=== PATIENT | female | born 1990 | race American Indian/Alaskan Native ===

== ENCOUNTER 2017-01-24 21:00 | Emergency (ER) | payer MEDICAID, OTHER ==
[2017-01-24 21:07] VITALS: BP 154/94; PULSE 83; RESP 20; TEMP 99.5
--- NOTE | 2017-01-24 21:21 | ED PDOC ---
Arrival/HPI - General Historian: Patient - History of Present Illness Time/Duration: < week (2 days ago) Symptom Onset: Sudden Symptom Course: Unchanged - General Chief Complaint: Shortness Of Breath Time Seen by Provider: 01/24/17 21:06 - History of Present Illness Narrative History of Present Illness (Text): 01/24/17 21:10 Abbi Owens is a 26 year old female, who presents to the Emergency department complaining of lightheadedness, headache, sob Patient reports she also has experienced weakness and shortness of breath for the last two days. Patient denies chest pain, headache, fever, chills, cough, nausea, vomiting, diarrhea, abdominal pain, or other complaints. 01/24/17 23:05 (Mat Harris) Modifying Factors (Text): None (Mat Harris) Associated Symptoms (Text): weakness and shortness of breath (Mat Harris) Past Medical History - Provider Review Nursing Documentation Reviewed: Yes - Psychiatric Hx Substance Use: No Family/Social History - Physician Review Nursing Documentation Reviewed: Yes Family/Social History: Unknown Family HX Smoking Status: Light Smoker < 10 Cigarettes Daily Hx Alcohol Use: No Hx Substance Use: No Allergies/Home Meds Allergies/Adverse Reactions: Allergies No Known Allergies Allergy (Verified 01/25/17 17:57) Review of Systems - Physician Review All systems were reviewed & negative as marked: Yes - Review of Systems Constitutional: Fatigue. absent: Fevers Respiratory: SOB Cardiovascular: absent: Chest Pain Gastrointestinal: absent: Abdominal Pain Neurological: Other (lightheadedness). absent: Headache Physical Exam Temperature: Afebrile Blood Pressure: Hypertensive Pulse: Regular Respiratory Rate: Normal Appearance: Positive for: Well-Appearing, Non-Toxic, Comfortable Pain Distress: None Mental Status: Positive for: Alert and Oriented X 3 - Systems Exam Head: Present: Atraumatic, Normocephalic Pupils: Present: PERRL Extroacular Muscles: Present: EOMI Conjunctiva: Present: Normal Mouth: Present: Moist Mucous Membranes Neck: Present: Normal Range of Motion Respiratory/Chest: Present: Clear to Auscultation, Good Air Exchange. No: Respiratory Distress, Accessory Muscle Use Cardiovascular: Present: Regular Rate and Rhythm, Normal S1, S2. No: Murmurs Abdomen: Present: Normal Bowel Sounds. No: Tenderness, Distention, Peritoneal Signs Back: Present: Normal Inspection Upper Extremity: Present: Normal Inspection. No: Cyanosis, Edema Lower Extremity: Present: Normal Inspection. No: Edema Neurological: Present: GCS=15, CN II-XII Intact, Speech Normal Skin: Present: Warm, Dry, Normal Color. No: Rashes Psychiatric: Present: Alert, Oriented x 3, Normal Insight, Normal Concentration , Anxious (slgihtly anxious appearing) Medical Decision Making - Lab Interpretations I have reviewed the lab results: Yes ED Course and Treatment: 01/24/17 Impression: 26 year old female with lightheadedness, weakness, and shortness of breath. Plan: -- EKG -- Chest X-ray -- Labs -- Urinalysis -- Tylenol -- Reassess and disposition Progress Notes: EKG: Ordered, reviewed, and independently interpreted the EKG. Rate : 58 BPM Rhythm : NSR Interpretation : No ST/T wave changes. Patient is PERC negative. 01/24/17 23:05 pt reassesed awake alert, neuro intact. headache resolved. pt states feels well for d/c. 01/24/17 23:07 MPRESSION: 1. No acute intracranial abnormality (RaswantMat) - Lab Interpretations Microbiology Results: Microbiology Results 01/24/17 21:30 Urine,Clean Catch Urine Culture - Preliminary Gram Negative Atif Lab Results: 01/24/17 21:20 01/24/17 21:20 Lab Results 01/24/17 21:30: Urine Color Yellow, Urine Appearance Clear, Urine pH 7.0, Ur Specific [place] 1.010, Urine Protein Negative, Urine Glucose (UA) Negative, Urine Ketones Negative, Urine Blood Trace-intact H, Urine Nitrate Negative, Urine Bilirubin Negative, Urine Urobilinogen 0.2, Ur Leukocyte Esterase Small H , Urine RBC 1 - 3, Urine WBC 2 - 5, Ur Epithelial Cells 3 - 4, Urine Bacteria Few, Urine HCG, Qual Negative 01/24/17 21:20: Sodium 139, Potassium 3.8, Chloride 104, Carbon Dioxide 24, Anion Gap 15, BUN 5 L, Creatinine 0.7, Est GFR ( Amer) > 60, Est GFR (Non -Af Amer) > 60, Random Glucose 94, Calcium 9.8, Total Bilirubin 0.6, AST 40 H, ALT 41, Alkaline Phosphatase 88, Total Protein 8.5 H, Albumin 4.5, Globulin 4.0 , Albumin/Globulin Ratio 1.1 01/24/17 21:20: PT 11.4, INR 1.06, APTT 32.2 H 01/24/17 21:20: WBC 6.1, RBC 4.36, Hgb 13.2, Hct 38.0, MCV 87.2, MCH 30.3, MCHC 34.7, RDW 13.3, Plt Count 212, MPV 11.1 H, Gran % 38.0 L, Lymph % (Auto) 49.3 H , Irion % (Auto) 11.1 H, Eos % (Auto) 1.3 L, Baso % (Auto) 0.3, Gran # 2.31, Lymph # 3.0, Irion # 0.7 H, Eos # 0.1, Baso # 0.02 - RAD Interpretation Radiology Orders: 01/24/17 21:14 CHEST PORTABLE [RAD] Stat 01/24/17 22:30 HEAD W/O CONTRAST [CT] Stat - Medication Orders Current Medication Orders: Discontinued Medications Acetaminophen (Tylenol 325mg Tab) 975 mg PO STAT STA Stop: 01/24/17 21:16 Last Admin: 01/24/17 21:37 Dose: 975 mg - Scribe Statement The provider has reviewed the documentation as recorded by the Scribe - Scribe Statement 01/24/2017 Cheli Tucker Provider Scribe Attestation: All medical record entries made by the Scribe were at my direction and personally dictated by me. I have reviewed the chart and agree that the record accurately reflects my personal performance of the history, physical exam, medical decision making, and the department course for this patient. I have also personally directed, reviewed, and agree with the discharge instructions and disposition. (Mat Harris) Disposition/Present on Arrival - Present on Arrival Any Indicators Present on Arrival: No History of DVT/PE: No History of Uncontrolled Diabetes: No Urinary Catheter: No History of Decub. Ulcer: No History Surgical Site Infection Following: None - Disposition Have Diagnosis and Disposition been Completed?: Yes Disposition Time: 23:06 - Disposition Diagnosis: Headache Disposition: HOME/ ROUTINE Condition: STABLE Discharge Instructions (ExitCare): Acute Headache (ED), Dyspnea (ED) Additional Instructions: please follow upw ith your doctor. return toe r with worsening symptoms or concerns. Prescriptions: Nitrofurantoin Macrocrystals [Macrobid] 100 mg PO BID #14 cap Referrals: [facility] [Outside] - Follow up with primary [facility]] - Follow up with primary [facility] [Outside] - Follow up with primary Bird Mcguire MD [Staff Provider] - Follow up with primary Forms: [employer] (Welsh) - Notes Notes (Text): 01/26/17 16:27 Urine cx shows +gram neg rods colony count 50k-100k. Pt called Rx for macrobid sent to her preferred pharmacy. (Baldemar NOVAK,Daria Guerin)
[2017-01-24 21:28] VITALS: O2SAT 98
[2017-01-24 21:38] LABS: BASO # 0.02 K/mm3 (0.0-2.0); BASO % 0.3 % (0.0-3.0); EOS # 0.1 (0.0-0.7); EOS % 1.3 % (1.5-5.0); GRAN # 2.31 (1.4-6.5); HEMOGLOBIN 13.2 gm/dL (12.0-16.0); LYMPH % 49.3 % (22.0-35.0); MEAN CELL VOLUME 87.2 fL (80.0-105.0); MEAN CORPUSCULAR HEMOGLOBIN 30.3 pg (25.0-35.0); MEAN CORPUSCULAR HGB CONC 34.7 g/dl (31.0-37.0); MEAN PLATELET VOLUME 11.1 fl (7.0-11.0); MONO # 0.7 (0.1-0.6); MONO % 11.1 % (1.0-6.0); PLATELET COUNT 212 10^3/uL (120.0-450.0); RBC 4.36 10^6/uL (3.5-6.1); RED CELL DISTRIBUTION WIDTH 13.3 % (11.5-14.5); WHITE BLOOD COUNT 6.1 10^3/ul (4.5-11.0)
[2017-01-24 21:49] LABS: ALB/GLOB RATIO 1.1 (1.1-1.8); ALBUMIN 4.5 g/dL (3.0-4.8); ALT/SGPT 41 U/L (7-56); AST/SGOT 40 U/L (15-39); BLOOD UREA NITROGEN 5 mg/dL (7-21); CALCIUM 9.8 mg/dL (8.4-10.5); GFR AFRICAN-AMERICAN > 60; GFR NON-AFRICAN AMERICAN > 60
[2017-01-24 21:50] LABS: INR 1.06 (0.93-1.08); PARTIAL THROMBOPLASTIN TIME 32.2 Seconds (23.7-30.8); PROTHROMBIN TIME 11.4 Seconds (9.9-11.8)
[2017-01-24 21:59] LABS: URINE BILIRUBIN NEGATIVE (NEGATIVE); URINE BLOOD TRACE-INTACT (NEGATIVE); URINE GLUCOSE (UA) NEGATIVE (NEGATIVE); URINE LEUKOCYTE ESTERASE SMALL Leu/uL (NEGATIVE); URINE NITRATE NEGATIVE (NEGATIVE); URINE PROTEIN NEGATIVE mg/dL (<30 mg/dL); URINE UROBILINOGEN 0.2 E.U./dL (<1 E.U./dL)
[2017-01-24 22:04] LABS: HCG,QUALITATIVE URINE NEGATIVE (NEGATIVE)
[2017-01-24 22:05] LABS: URINE APPEARANCE CLEAR (CLEAR); URINE COLOR YELLOW (YELLOW)
[2017-01-24 22:23] LABS: URINE BACTERIA FEW (NEG)
--- NOTE | 2017-01-24 23:05 | CT ---
EXAM: CT Head Without Intravenous Contrast CLINICAL HISTORY: 26 years old, female; Pain; Headache; Tension; Additional info: GERONIMO TECHNIQUE: Axial computed tomography images of the head/brain without intravenous contrast. This CT exam was performed using one or more of the following dose reduction techniques: automated exposure control, adjustment of the mA and/or kV according to patient size, and/or use of iterative reconstruction technique. COMPARISON: No relevant prior studies available. FINDINGS: Brain: No intracranial hemorrhage. No mass. No definite edema. Ventricles: No hydrocephalus. Bones/joints: No acute fracture. Soft tissues: Unremarkable. Sinuses: No acute sinusitis. Mastoid air cells: No mastoid effusion. Orbits: Unremarkable as visualized. IMPRESSION: 1. No acute intracranial abnormality.
--- NOTE | 2017-01-25 11:02 | CARD ---
APPROVED REPORT EKG Measurement Heart [id number] <Conclusion> Sinus bradycardia Otherwise normal ECG
--- NOTE | 2017-01-25 12:02 | RAD ---
HISTORY: sob COMPARISON: No prior. FINDINGS: LUNGS: No active pulmonary disease. PLEURA: No significant pleural effusion identified, no pneumothorax apparent. CARDIOVASCULAR: Normal. OSSEOUS STRUCTURES: No significant abnormalities. VISUALIZED UPPER ABDOMEN: Normal. OTHER FINDINGS: None. IMPRESSION: No active disease.
== END 2017-01-24 23:56 | disposition home or self-care (01) ==
LOC: ED 21:00
DX: R51 Headache (principal); F17.210 Nicotine dependence, cigarettes, uncomplicated

== ENCOUNTER 2017-01-25 11:09 | Emergency (ER) | payer MEDICAID, OTHER ==
[2017-01-25] MEDS ORDERED: Sodium Chloride 0.9% 1,000 ML IV STA (11:28)
--- NOTE | 2017-01-25 11:33 | ED PDOC ---
Arrival/HPI - General Chief Complaint: Dizziness/Lightheaded Time Seen by Provider: 01/25/17 11:28 Historian: Patient - History of Present Illness Narrative History of Present Illness (Text): 01/25/17 11:20 A 26 year old female with no known past medical history, presents to the emergency department with weakness and lightheadedness since last night. The patients came to the emergency department last night, and her symptoms have not resolved. The patient denies symptoms of fevers chills, nausea, vomiting, diarrhea, abdominal pain, chest pain, shortness of breath. Time/Duration: Prior to Arrival, Other (Yesterday) Symptom Course: Unchanged Activities at Onset: Rest, Light Context: Home Past Medical History - Provider Review Nursing Documentation Reviewed: Yes - Infectious Disease Hx of Infectious Diseases: None - Psychiatric Hx Substance Use: No - Anesthesia Hx Anesthesia: No Hx Anesthesia Reactions: No Hx Malignant Hyperthermia: No Family/Social History - Physician Review Nursing Documentation Reviewed: Yes Family/Social History: No Known Family HX Smoking Status: Light Smoker < 10 Cigarettes Daily Hx Alcohol Use: No Hx Substance Use: No Allergies/Home Meds Allergies/Adverse Reactions: Allergies No Known Allergies Allergy (Verified 01/28/16 18:57) Home Medications: Home Meds Medication Instructions Recorded Confirmed No Known Home Med 01/24/17 01/24/17 Physical Exam - Physical Exam Narrative Physical Exam (Text): 01/25/17 11:44 - Review of Systems Constitutional: Normal. absent: Fatigue, Weight Change, Fevers Eyes: Normal ENT: Normal Respiratory: Normal absent: SOB, Cough, Sputum Cardiovascular: Normal absent: Chest pain, Palpitations, Syncope Gastrointestinal: Normal absent: Abdominal pain, Diarrhea, Nausea, Vomiting Genitourinary: Normal. absent: Dysuria, Frequency, Hematuria Musculoskeletal: Normal. absent: Arthralgias, Back Pain, Neck Pain Skin: Normal Neurological: (+) Lightheadedness, Dizziness. absent: Focal Weakness Endocrine: Normal Hemo/Lymphatic: Normal Psychiatric: Normal - Physical exam Patient appears age appropriate, speaking full sentences without difficulty - Systems Exam Head: Present: Atraumatic, Normocephalic Pupils: Present: PERRL Extraocular Muscles: Present: EOMI Conjunctiva: Present: Normal Mouth: Present: Moist Mucous Membranes Neck: Present: Normal Range of Motion. No: MIDLINE TENDERNESS, Paraspinal Tenderness Respiratory/Chest: Present: Clear to Auscultation, Good Air Exchange. No: Respiratory Distress, Accessory Muscle Use, Tachypnic Cardiovascular: Present: Regular Rate and Rhythm, Normal S1, S2, Peripheral Pulses Present. No: Murmurs Abdomen: Present: Normal Bowel Sounds, No: Tenderness, Peritoneal Signs, Rebound, Guarding, Distention Back: Present: Normal Inspection. No: Midline Tenderness, Paraspinal Tenderness Upper Extremity: Present: Normal Inspection. No: Cyanosis, Edema Lower Extremity: Present: Normal Inspection. No: Edema Neurological: Present: GCS=15, Speech Normal, cranial nerves II through XII fully intact with no cerebellar abnormality, neuro-sensory fully intact. No focal neurological deficits. Skin: Present: Warm, Dry, Normal Color. No: Rashes Lymphatic: Present: OX3, NI, NC Psychiatric: Present: Alert, Oriented x 3, Normal Insight, Normal Concentration 01/25/17 11:53 Vital Signs Reviewed: Yes Vital Signs Temp Pulse Resp BP Pulse Ox 01/25/17 13:38 134/75 01/25/17 11:18 98.2 F 66 19 121/72 100 Temperature: Afebrile Blood Pressure: Normal Pulse: Regular Respiratory Rate: Normal - Systems Exam Ears: Present: Normal, NORMAL TM, Normal Canal, Other (b/l). No: Erythema, TM Bulging, Fluid, TM Perf Medical Decision Making ED Course and Treatment: 01/25/17 11:44 Impression: A 26 year old female with unresolved dizziness and light headedness after her visit to the emergency department last night. Physical exam unremarkable. No focal neurological deficits. Plan: -- Toradol -- IV Fluids -- Reassess and disposition Prior Visits: Notes and results from previous visits were reviewed. Patient was last seen in the emergency department on 01/24/17 Progress Notes: 01/25/17 11:20: Patient remains symptomatic, more Meclizine ordered. 01/25/17 11:32: Patient's previous records reviewed, Head CT from 01/24/17 showed no acute abnormalities. Patients blood work from 01/24/17 unremarkable. Patients Chest X-ray from 01/24/17 normal. Patient's EKG from 01/24/17 shows: Rate : 58 BPM Rhythm : Bradychardia Normal intervals. 01/25/17 14:55 on reeval, pt states she feels better ambulating with steady gain and tolerating PO without difficulty pt states she already has a meclizine rx instructed to f/u with ENT specialist pt state she feels comfortable being dc'd home Pt states she understands to return to the ER right away for new or worsening symptoms or for inability to f/u with PMD or specialist as instructed. Patient states that she fully agrees with and understands discharge instructions. States that she agrees with the plan and disposition. Verbalized and repeated discharge instructions and plan. I have given the patient opportunity to ask any additional questions. - Medication Orders Current Medication Orders: Discontinued Medications Sodium Chloride (Sodium Chloride 0.9%) 1,000 mls @ 1,000 mls/hr IV .Q1H STA Stop: 01/25/17 12:27 Last Admin: 01/25/17 11:52 Dose: 1,000 mls/hr Ketorolac Tromethamine (Toradol) 15 mg IVP STAT STA Stop: 01/25/17 11:39 Last Admin: 01/25/17 11:53 Dose: 15 mg Re-Assess: DAVIDA Pain Assessment Document 01/25/17 12:53 GMI (Rec: 01/25/17 13:17 G[id number]) Pain Reassessment Is this a pain reassessment? Yes Sleep Is patient sleeping during reassessment? No Presence of Pain Presence of Pain Yes Pain Scale Used Pain Scale Used Numeric Location Pain Location Body Supervisor Residential Description Description Sharp Intensity of Pain at present 4 Meclizine HCl (Antivert) 25 mg PO STAT STA Stop: 01/25/17 13:21 Last Admin: 01/25/17 14:32 Dose: 25 mg - Scribe Statement The provider has reviewed the documentation as recorded by the Marilynnibjeffry Fallon Provider Scribe Attestation: All medical record entries made by the Marilynnibjeffry were at my direction and personally dictated by me. I have reviewed the chart and agree that the record accurately reflects my personal performance of the history, physical exam, medical decision making, and the department course for this patient. I have also personally directed, reviewed, and agree with the discharge instructions and disposition. Disposition/Present on Arrival - Present on Arrival Any Indicators Present on Arrival: No History of DVT/PE: No History of Uncontrolled Diabetes: No Urinary Catheter: No History of Decub. Ulcer: No History Surgical Site Infection Following: None - Disposition Have Diagnosis and Disposition been Completed?: Yes Diagnosis: Dizzy Disposition: HOME/ ROUTINE Disposition Time: 14:57 Patient Plan: Discharge Condition: GOOD Discharge Instructions (ExitCare): Dizziness (ED), Lightheadedness (ED) Additional Instructions: PLEASE RETURN TO THE EMERGENCY DEPARTMENT FOR NEW OR WORSENING SYMPTOMS. RETURN RIGHT AWAY IF YOU CANNOT FOLLOW UP WITH YOUR PRIMARY CARE DOCTOR, CLINIC, OR SPECIALIST IN 1-2 DAYS. Referrals: Kirk Cisneros [Primary Care Provider] - Follow up with primary Chalino Menon DO [Staff Provider] - Follow up with primary Vik Julian DO [Doctor Osteopathy] - Follow up with primary Forms: [employer] (Spanish)
[2017-01-25 15:25] VITALS: BP 121/72; PULSE 96; RESP 20; TEMP 98.5; O2SAT 99
== END 2017-01-25 15:27 | disposition home or self-care (01) ==
LOC: ED 11:09
DX: R42 Dizziness and giddiness (principal)
CPT/HCPCS: 96361; 96374; 99285; J1885; J7040

== ENCOUNTER 2017-01-28 23:37 | Emergency (ER) | payer MEDICAID, OTHER ==
[2017-01-29 00:59] VITALS: O2SAT 99
[2017-01-29] MEDS ORDERED: Sodium Chloride 0.9% 1,000 ML IV STA (01:33)
--- NOTE | 2017-01-29 01:35 | ED PDOC ---
Arrival/HPI - General Chief Complaint: Medical Clearance Time Seen by Provider: 01/29/17 01:04 Historian: Patient - History of Present Illness Narrative History of Present Illness (Text): 01/29/17 01:20 Abbi Owens is a 26 year old female, who has no significant past medical history, presents to the Emergency department complaining of a headache. Patient reports she also has occasional dizziness, chest discomfort, and knee discomfort. Patient denies any trauma. Patient denies shortness of breath, fever , cough, chills, neck pain, back pain, rash, visual disturbance, or other complaints. Symptom Onset: Sudden Symptom Course: Unchanged Associated Symptoms (Text): dizziness, chest discomfort, and knee discomfort Past Medical History - Provider Review Nursing Documentation Reviewed: Yes - Infectious Disease Hx of Infectious Diseases: None - Psychiatric Hx Substance Use: No - Surgical History Hx Section: Yes - Anesthesia Hx Anesthesia: No Hx Anesthesia Reactions: No Hx Malignant Hyperthermia: No Family/Social History - Physician Review Nursing Documentation Reviewed: Yes Family/Social History: Unknown Family HX Smoking Status: Former Smoker Hx Alcohol Use: No Hx Substance Use: No Allergies/Home Meds Allergies/Adverse Reactions: Allergies No Known Allergies Allergy (Verified 01/29/17 00:51) Review of Systems - Physician Review All systems were reviewed & negative as marked: Yes - Review of Systems Constitutional: absent: Fevers Eyes: absent: Vision Changes Respiratory: absent: SOB Cardiovascular: Other (chest discomfort) Gastrointestinal: absent: Abdominal Pain Musculoskeletal: Other (knee discomfort ). absent: Neck Pain Skin: absent: Rash Neurological: Headache, Dizziness (occasional) Physical Exam Vital Signs Temp Pulse Resp BP Pulse Ox 01/29/17 00:58 98.3 F 75 18 136/67 99 Temperature: Afebrile Blood Pressure: Normal Pulse: Regular Respiratory Rate: Normal Appearance: Positive for: Well-Appearing, Non-Toxic, Comfortable Pain Distress: None Mental Status: Positive for: Alert and Oriented X 3 - Systems Exam Head: Present: Atraumatic, Normocephalic Pupils: Present: PERRL Extroacular Muscles: Present: EOMI Conjunctiva: Present: Normal Mouth: Present: Moist Mucous Membranes Neck: Present: Normal Range of Motion. No: Meningeal Signs Respiratory/Chest: Present: Clear to Auscultation, Good Air Exchange, Tender to Palpation. No: Respiratory Distress, Accessory Muscle Use Cardiovascular: Present: Regular Rate and Rhythm, Normal S1, S2. No: Murmurs Abdomen: Present: Normal Bowel Sounds. No: Tenderness, Distention, Peritoneal Signs Back: Present: Normal Inspection Upper Extremity: Present: Normal Inspection. No: Cyanosis, Edema Lower Extremity: Present: Normal Inspection. No: Edema, Swelling (no knee swelling or warmth) Neurological: Present: GCS=15, CN II-XII Intact, Speech Normal Skin: Present: Warm, Dry, Normal Color. No: Rashes Psychiatric: Present: Alert, Oriented x 3, Normal Insight, Normal Concentration Medical Decision Making ED Course and Treatment: 01/29/17 01:20 Impression: 26 year old female with headache and chest discomfort. Plan: -- EKG -- Chest X-ray -- CT Head without contrast -- Urinalysis -- Labs -- Tylenol and Sodium Chloride -- Reassess and disposition Progress Notes: EKG: Ordered, reviewed, and independently interpreted the EKG. Rate : 64 BPM Rhythm : NSR Interpretation : No ST-segment elevations or depressions, no T-wave inversions, normal intervals. Comparison : No previous EKG for comparison. 01/29/17 03:18 CT Head Without Intravenous Contrast COMPARISON: 01/24/2017 10:35:37 PM FINDINGS: Brain: Unremarkable. No hemorrhage. No significant white matter disease. No edema. Ventricles: Unremarkable. No ventriculomegaly. Bones/joints: Congenital incomplete posterior arch of C1. No acute fracture. Soft tissues: Unremarkable. Sinuses: Unremarkable as visualized. No acute sinusitis. Mastoid air cells: Unremarkable as visualized. No mastoid effusion. IMPRESSION: Negative noncontrast head CT without change from 01/24/2017. 01/29/17 04:08 Chest X-ray: No Acute Process - Lab Interpretations Lab Results: 01/29/17 02:15 01/29/17 03:01 Lab Results 01/29/17 03:01: Sodium 137, Potassium 3.5 L, Chloride 102, Carbon Dioxide 25, Anion Gap 14, BUN 7, Creatinine 0.8, Est GFR ( Amer) > 60, Est GFR (Non- Af Amer) > 60, Random Glucose 94, Calcium 8.9, Total Bilirubin 0.3, AST 33, ALT 34, Alkaline Phosphatase 84, Lactate Dehydrogenase 256 L, Total Creatine Kinase 69, Troponin I < 0.01, Total Protein 7.4, Albumin 4.1, Globulin 3.3, Albumin/ Globulin Ratio 1.2 01/29/17 02:15: Urine Color Yellow, Urine Appearance Sl cloudy, Urine pH 6.0, Ur Specific [place] 1.025, Urine Protein Trace H, Urine Glucose (UA) Negative, Urine Ketones Trace H, Urine Blood Small H, Urine Nitrate Negative, Urine Bilirubin Negative, Urine Urobilinogen 0.2, Ur Leukocyte Esterase Negative, Urine RBC 1 - 3, Urine WBC 1 - 3, Ur Epithelial Cells 1 - 3, Urine Bacteria Few , Urine HCG, Qual Negative 01/29/17 02:15: WBC 6.7, RBC 4.30, Hgb 13.3, Hct 37.4, MCV 87.0, MCH 30.9, MCHC 35.6, RDW 13.5, Plt Count 251, MPV 11.5 H I have reviewed the lab results: Yes - RAD Interpretation Radiology Orders: 01/29/17 01:32 HEAD W/O CONTRAST [CT] Stat 01/29/17 01:40 CHEST PORTABLE [RAD] Stat It Assistant: Radiologist - EKG Interpretation Interpreted by ED Physician: Yes Type: 12 lead EKG - Medication Orders Current Medication Orders: Discontinued Medications Acetaminophen (Tylenol 325mg Tab) 650 mg PO STAT STA Stop: 01/29/17 01:34 Last Admin: 01/29/17 02:21 Dose: 650 mg Sodium Chloride (Sodium Chloride 0.9%) 1,000 mls @ 999 mls/hr IV .Q1H1M STA Stop: 01/29/17 02:33 Last Admin: 01/29/17 02:21 Dose: 999 mls/hr - Scribe Statement The provider has reviewed the documentation as recorded by the Scribe 01/29/2017 Cheli Tucker Provider Scribe Attestation: All medical record entries made by the Scribe were at my direction and personally dictated by me. I have reviewed the chart and agree that the record accurately reflects my personal performance of the history, physical exam, medical decision making, and the department course for this patient. I have also personally directed, reviewed, and agree with the discharge instructions and disposition. Disposition/Present on Arrival - Present on Arrival Any Indicators Present on Arrival: No History of DVT/PE: No History of Uncontrolled Diabetes: No Urinary Catheter: No History of Decub. Ulcer: No History Surgical Site Infection Following: None - Disposition Have Diagnosis and Disposition been Completed?: Yes Diagnosis: Headache, Myalgia, Dizziness Disposition: HOME/ ROUTINE Disposition Time: 05:17 Patient Plan: Discharge Condition: STABLE Discharge Instructions (ExitCare): General Headache (ED), Musculoskeletal Pain (ED) Additional Instructions: Rest/no strenuous physical activity next few days/medication as prescribed/ follow up with your doctor this week Prescriptions: Naproxen [Naprosyn Tab] 375 mg PO BID PRN #14 tab PRN Reason: Pain, Moderate (4-7) Referrals: Mariusz Cisneros MD [Primary Care Provider] - Follow up with primary Forms: [employer] (Nepalese)
[2017-01-29 02:37] LABS: HEMOGLOBIN 13.3 g/dL (12.0-16.0); MEAN CORPUSCULAR HEMOGLOBIN 30.9 pg (25.0-35.0); MEAN CORPUSCULAR HGB CONC 35.6 g/dl (31.0-37.0); MEAN PLATELET VOLUME 11.5 fl (7.0-11.0); RBC 4.3 10^6/uL (3.5-6.1); RED CELL DISTRIBUTION WIDTH 13.5 % (11.5-14.5); WHITE BLOOD COUNT 6.7 10^3/ul (4.5-11.0)
[2017-01-29 02:38] LABS: URINE BILIRUBIN NEGATIVE (NEGATIVE); URINE BLOOD SMALL (NEGATIVE); URINE GLUCOSE (UA) NEGATIVE (NEGATIVE); URINE LEUKOCYTE ESTERASE NEGATIVE Leu/uL (NEGATIVE); URINE NITRATE NEGATIVE (NEGATIVE); URINE PROTEIN TRACE mg/dL (<30 mg/dL); URINE UROBILINOGEN 0.2 E.U./dL (<1 E.U./dL)
[2017-01-29 02:45] LABS: HCG,QUALITATIVE URINE NEGATIVE (NEGATIVE)
[2017-01-29 02:46] LABS: URINE APPEARANCE SL CLOUDY (CLEAR); URINE COLOR YELLOW (YELLOW)
[2017-01-29 02:55] LABS: URINE BACTERIA FEW (NEG)
[2017-01-29 03:30] LABS: ALB/GLOB RATIO 1.2 (1.1-1.8); ALBUMIN 4.1 g/dL (3.0-4.8); ALT/SGPT 34 U/L (7-56); AST/SGOT 33 U/L (15-39); BLOOD UREA NITROGEN 7 mg/dL (7-21); CALCIUM 8.9 mg/dL (8.4-10.5); GFR AFRICAN-AMERICAN > 60; GFR NON-AFRICAN AMERICAN > 60
[2017-01-29 03:56] LABS: TROPONIN I < 0.01 ng/mL
[2017-01-29 05:31] VITALS: BP 128/72; PULSE 76; RESP 16; TEMP 97.9
[2017-01-29 05:46] LABS: BARBITURATES, UR NEGATIVE (NEGATIVE); BENZODIAZEPINES, UR NEGATIVE (NEGATIVE); OPIATES, UR NEGATIVE (NEGATIVE); PHENCYCLIDINE, UR NEGATIVE (NEGATIVE)
--- NOTE | 2017-01-29 07:07 | RAD ---
HISTORY: pain COMPARISON: 01/24/2017 FINDINGS: LUNGS: No active pulmonary disease. PLEURA: No significant pleural effusion identified, no pneumothorax apparent. CARDIOVASCULAR: Normal. OSSEOUS STRUCTURES: No significant abnormalities. VISUALIZED UPPER ABDOMEN: Normal. OTHER FINDINGS: None. IMPRESSION: No active disease.
--- NOTE | 2017-01-29 09:17 | CT ---
PROCEDURE: CT HEAD WITHOUT CONTRAST. HISTORY: headache COMPARISON: None available. TECHNIQUE: Axial computed tomography images were obtained through the head/brain without intravenous contrast. Radiation dose: Total exam DLP = 677 mGy-cm. This CT exam was performed using one or more of the following dose reduction techniques: Automated exposure control, adjustment of the mA and/or kV according to patient size, and/or use of iterative reconstruction technique. FINDINGS: HEMORRHAGE: No intracranial hemorrhage. BRAIN: No mass effect or edema. No atrophy or chronic microvascular ischemic changes. VENTRICLES: Unremarkable. No hydrocephalus. CALVARIUM: Unremarkable. PARANASAL SINUSES: Unremarkable as visualized. No significant inflammatory changes. MASTOID AIR CELLS: Unremarkable as visualized. No inflammatory changes. OTHER FINDINGS: None. IMPRESSION: Negative study
--- NOTE | 2017-01-30 01:04 | CARD ---
APPROVED REPORT EKG Measurement Heart [id number] <Conclusion> Normal sinus rhythm Normal ECG
== END 2017-01-29 05:49 | disposition home or self-care (01) ==
LOC: ED 23:37
DX: R51 Headache (principal); M79.1 Myalgia; R42 Dizziness and giddiness
CPT/HCPCS: 70450; 71010; 80053; 81001; 82550; 83615; 84484; 84703; 85027; 93005; 96360; 99284; G0480; J7040

== ENCOUNTER 2017-01-29 12:55 | Emergency (ER) | payer MEDICAID, OTHER ==
--- NOTE | 2017-01-29 13:18 | ED PDOC ---
Arrival/HPI - General Chief Complaint: Syncope Time Seen by Provider: 01/29/17 13:03 Historian: Patient - History of Present Illness Narrative History of Present Illness (Text): 01/29/17 13:12 A 26 year old female whose past medical history in unknown, presents to the emergency department with shortness of breath. She was seen in the emergency department in the middle of the night, earlier this morning. The patient states that she had a syncopal episode this morning at around 10:30 am where she passed out while urinating in her bathroom. She also notes that she is experiencing spinning sensation dizziness. The patient denies vomiting, headache , diarrhea, abdominal pain, or any other complaint. Time/Duration: Prior to Arrival Symptom Onset: Sudden Symptom Course: Unchanged Activities at Onset: Rest, Light Context: Home Past Medical History - Provider Review Nursing Documentation Reviewed: Yes - Infectious Disease Hx of Infectious Diseases: None - Psychiatric Hx Substance Use: No - Surgical History Hx Section: Yes - Anesthesia Hx Anesthesia: No Hx Anesthesia Reactions: No Hx Malignant Hyperthermia: No Family/Social History - Physician Review Nursing Documentation Reviewed: Yes Family/Social History: No Known Family HX Smoking Status: Former Smoker Hx Alcohol Use: No Hx Substance Use: No Allergies/Home Meds Allergies/Adverse Reactions: Allergies No Known Allergies Allergy (Verified 01/29/17 00:51) Home Medications: Home Meds Medication Instructions Recorded Confirmed No Known Home Med 01/29/17 01/29/17 Review of Systems - Physician Review All systems were reviewed & negative as marked: Yes - Review of Systems Constitutional: absent: Fevers, Night Sweats Respiratory: SOB Cardiovascular: Syncope (Episode this morining ). absent: Chest Pain Gastrointestinal: Nausea. absent: Abdominal Pain, Diarrhea, Vomiting Neurological: Dizziness (Spinning sensation). absent: Headache Physical Exam Vital Signs Reviewed: Yes Vital Signs Temp Pulse Resp BP Pulse Ox 01/29/17 13:29 98.9 F 88 17 137/93 H 98 Temperature: Afebrile Blood Pressure: Hypertensive Pulse: Regular Respiratory Rate: Normal Appearance: Positive for: Well-Appearing, Non-Toxic, Comfortable Pain Distress: None Mental Status: Positive for: Alert and Oriented X 3 - Systems Exam Head: Present: Atraumatic, Normocephalic Pupils: Present: PERRL Extroacular Muscles: Present: EOMI Conjunctiva: Present: Normal Mouth: Present: Moist Mucous Membranes Pharnyx: Present: Normal. No: ERYTHEMA, EXUDATE Neck: Present: Normal Range of Motion Respiratory/Chest: Present: Clear to Auscultation, Good Air Exchange. No: Respiratory Distress, Accessory Muscle Use Cardiovascular: Present: Regular Rate and Rhythm, Normal S1, S2. No: Murmurs Abdomen: Present: Normal Bowel Sounds. No: Tenderness, Distention, Peritoneal Signs Back: Present: Normal Inspection Upper Extremity: Present: Normal Inspection. No: Cyanosis, Edema Lower Extremity: Present: Normal Inspection. No: Edema Neurological: Present: GCS=15, CN II-XII Intact, Speech Normal, Motor Func Grossly Intact Skin: Present: Warm, Dry, Normal Color. No: Rashes Psychiatric: Present: Alert, Oriented x 3, Normal Insight, Normal Concentration. No: Anxious, Depressed Mood Medical Decision Making ED Course and Treatment: 01/29/17 13:17 Impression: A 26 year old patient with shortness of breath and spinning room sensation dizziness. Plan: -- EKG --Labs -- Xanax and IV Fluids -- Reassess and disposition Prior Visits: Notes and results from previous visits were reviewed. On 01/28/2017 patient came in complaining of weakness. Progress Notes: 01/29/17 15:48 EKG: NSR @ 68; no ST/T changes; normal intervals; normal axis. 01/29/17 15:58 Patient just had labs, brain CT, and CXR from this morning, which were unremarkable. Repeat EKG here is normal with normal exam. D-dimer sent is negative. There are no objective abnormalities found on this patient at this time to necessitate inpatient workup at this time and by SF Syncope rule, the patient may be discharged. I spoke with patient at length, and she insisted that she has not been feeling anxious or stressed. Reports no improvement with a low dose of xanax, yet is very comfortable appearing. Told patient she will need to follow up with primary care and cardiology and neurology outpatient. - Lab Interpretations Lab Results: Lab Results 01/29/17 14:20: D-Dimer, Quantitative 0.23 - Medication Orders Current Medication Orders: Discontinued Medications Alprazolam (Xanax) 0.125 mg PO STAT STA PRN Reason: Protocol Stop: 01/29/17 13:22 Last Admin: 01/29/17 14:47 Dose: 0.125 mg Sodium Chloride (Sodium Chloride 0.9%) 1,000 mls @ 999 mls/hr IV .Q1H1M STA Stop: 01/29/17 14:21 Last Admin: 01/29/17 14:47 Dose: 999 mls/hr - Scribe Statement The provider has reviewed the documentation as recorded by the Scribe Dipika Fallon Provider Scribe Attestation: All medical record entries made by the Scribe were at my direction and personally dictated by me. I have reviewed the chart and agree that the record accurately reflects my personal performance of the history, physical exam, medical decision making, and the department course for this patient. I have also personally directed, reviewed, and agree with the discharge instructions and disposition. Disposition/Present on Arrival - Present on Arrival Any Indicators Present on Arrival: No History of DVT/PE: No History of Uncontrolled Diabetes: No Urinary Catheter: No History of Decub. Ulcer: No History Surgical Site Infection Following: None - Disposition Have Diagnosis and Disposition been Completed?: Yes Diagnosis: Syncope Disposition: HOME/ ROUTINE Disposition Time: 16:00 Patient Plan: Discharge Patient Problems: Current Active Problems Problem Status Onset Syncope Acute Condition: GOOD Discharge Instructions (ExitCare): Syncope (ED) Additional Instructions: Drink plenty of fluids. Follow up with neurology and cardiology and your primary care doctor. Return to the emergency department if any new concerning symptoms. Referrals: Terence Francis MD [Staff Provider] - Follow up with primary Devan Harding MD [Staff Provider] - Follow up with primary Forms: [employer] (Slovak)
[2017-01-29] MEDS ORDERED: Sodium Chloride 0.9% 1,000 ML IV STA (13:21)
[2017-01-29 13:31] VITALS: BP 137/93; PULSE 88; RESP 17; TEMP 98.9; O2SAT 98
--- NOTE | 2017-01-30 01:14 | CARD ---
APPROVED REPORT EKG Measurement Heart [id number] <Conclusion> Normal sinus rhythm Normal ECG
== END 2017-01-29 16:25 | disposition home or self-care (01) ==
LOC: ED 12:55
DX: R55 Syncope and collapse (principal); Z87.891 Personal history of nicotine dependence
CPT/HCPCS: 85378; 93005; 99285; J7040